=== PATIENT | female | born 1930 | race Caucasian/White ===

== ENCOUNTER 2020-02-06 18:57 | Emergency (ER) | payer MEDICARE ==
[~2020-02-06 18:57] MED LIST: AMLO-250 PO; ASPI-999 PO; DOXA2TAB2 PO; LISI40TA PO; METO100T12 PO; PSYL1PAC10 PO
[2020-02-06] MEDS ORDERED: NS IV 500 ML 500 ML IV STA (19:00)
--- NOTE | 2020-02-06 19:07 | ED General ---
General Stated Complaint: FALL Source of Information: Patient, EMS, EMS Notes Reviewed, RN/MD, RN Notes Reviewed History of Present Illness Date Seen by Provider: Feb 06, 2020 Time Seen by Provider: 18:55 Initial Comments This patient is an 89-year-old female presents to the emergency department after a fall in her home. Patient was found in the floor by neighbors for could not get in to help patient so EMS was called. Patient states she just stepped back and fell back has no injuries. Was unable to get herself up. Patient has no complaints at this time. We'll do medical evaluation treatment is needed. Timing/Duration: 1 Hour Severity: Mild Associated Systoms: Denies Symptoms Allergies and Home Medications Allergies Coded Allergies: Sulfa (Sulfonamide Antibiotics) (Unverified Allergy, Unknown, 08/31/15) Home Medications Amlodipine Besylate 5 Mg Tablet, 5 MG PO BID Prescribed by: ORTEGA BROOKS on 09/14/15 09 Aspirin 81 Mg Tab.chew, 81 MG PO DAILY, (Reported) Doxazosin Mesylate 2 Mg Tablet, 2 MG PO BID Prescribed by: ORTEGA BROOKS on 09/14/15 09 Lisinopril 40 Mg Tablet, 10 MG PO DAILY Prescribed by: LAURA CARSON on 09/04/151943 Metoprolol Tartrate 100 Mg Tablet, 100 MG PO BID, (Reported) Psyllium Husk (with Sugar) 3.4 Gm Powd.pack, 3.4 GM PO DAILY, (Reported) Patient Home Medication List Home Medication List Reviewed: Yes Review of Systems Review of Systems Constitutional: No no symptoms reported; see HPI; No chills, No diaphoresis, No dizziness, No fever, No malaise; weakness; No weight gain, No weight loss, No other EENTM: No see HPI, No no symptoms reported, No ear discharge, No hearing loss, No ear pain, No blurred vision, No double vision, No eye pain, No tearing, No vision loss, No dental problems, No hoarseness, No mouth pain, No mouth swelling, No epistaxis, No nose congestion, No nose pain, No throat pain, No throat swelling, No other Respiratory: No no symptoms reported, No see HPI, No cough, No dyspnea on exertion, No hemoptysis, No orthopnea, No phlegm, No short of breath, No stridor, No wheezing, No other Cardiovascular: No no symptoms reported, No see HPI, No chest pain, No edema, No Hx of Intervention, No palpitations, No syncope, No vascular heart diseas, No other Gastrointestinal: No RUQ, No LUQ, No RLQ, No LLQ, No no symptoms reported, No see HPI, No abdominal pain, No constipation, No diarrhea, No dysphagia, No hematemesis, No heartburn, No jaundice, No loss of appetite, No melena, No nausea, No vomiting, No other Genitourinary: No no symptoms reported, No see HPI, No decreased output, No discharge, No dysuria, No frequency, No hematuria, No hesitancy, No incontinence, No nocturia, No pain, No other Musculoskeletal: No no symptoms reported, No see HPI, No back pain, No gout, No joint pain, No joint swelling, No muscle pain, No muscle stiffness, No muscle cramps, No muscle twitching, No muscle weakness, No neck pain, No other Skin: No no symptoms reported, No see HPI, No change in color, No change in hair/nails, No dryness, No hx of skin cancer, No lesions, No lumps, No pruritus, No rash, No other Psychiatric/Neurological: Denies No Symptoms Reported, Denies See HPI, Denies Anxiety, Denies Depressed, Denies Emotional Problems, Denies Headache, Denies Numbness, Denies Paresthesia, Denies Pre-Existing Deficit, Denies Seizure, Denies Tingling, Denies Tremors, Denies Weakness, Denies Other All Other Systems Reviewed Negative Unless Noted: Yes Past [id number]-[id number]-Indlsp Hx Patient Social History Recent Foreign Travel: No Contact w/Someone Who Travel: No Immunizations Up To Date Tetanus Booster (TDap): Unknown Date of Influenza Vaccine: Jan 03, 2015 Past Medical History Hysterectomy Hypertension Reproductive Disorders: No UTI-Chronic Chronic Constipation, Diverticulosis Anxiety Adverse Reaction/Blood Tranf: No Family Medical History Cancer of mouth Completed stroke 19 FATHER, Onset:60 years & older Physical Exam Vital Signs Vital Signs - First Documented 02/06/20 19:00 Temp 36.5 Pulse 89 Resp 18 B/P (MAP) 200/79 (119) Pulse Ox 95 O2 Delivery Room Air Capillary Refill : Height, Weight, BMI Height: 5'7.00" Weight: 220lbs. 3.6oz. [id number]; 34.0 BMI Method:Stated General Appearance: No Apparent Distress, WD/WN Neck: Full Range of Motion, Normal Inspection, Non Tender, Supple Respiratory: Chest Non Tender, Lungs Clear, Normal Breath Sounds, No Accessory Muscle Use, No Respiratory Distress Cardiovascular: Regular Rate, Rhythm, No Edema, No Gallop, No JVD, No Murmur, Normal Peripheral Pulses Gastrointestinal: Normal Bowel Sounds, No Organomegaly, No Pulsatile Mass, Non Tender, Soft Back: Normal Inspection, No CVA Tenderness, No Vertebral Tenderness Extremity: Normal Capillary Refill, Normal Inspection, Normal Range of Motion, Non Tender, No Calf Tenderness, Swelling, Other (chronic lower leg edema and venous stasis.) Neurologic/Psychiatric: Alert, Oriented x3, No Motor/Sensory Deficits, Normal Mood/Affect Skin: Normal Color, Warm/Dry Progress/Results/Core Measures Suspected Sepsis SIRS Temperature: Pulse: Respiratory Rate: Laboratory Tests 02/06/20 19:03: White Blood Count 9.8 Blood Pressure / Mean: Laboratory Tests 02/06/20 19:03: Platelet Count 212 02/06/20 19:27: Creatinine 1.07, INR Comment 1.1, Total Bilirubin 0.5 Results/Orders Lab Results Laboratory Tests Test 02/06/20 19:03 02/06/20 19:27 02/06/20 20:05 Range/Units White Blood Count 9.8 4.3-11.0 10^3/uL Red Blood Count 4.22 L 4.35-5.85 10^6/uL Hemoglobin 12.6 11.5-16.0 G/DL Hematocrit 37 35-52 % Mean Corpuscular Volume 88 80-99 FL Mean Corpuscular Hemoglobin 30 25-34 PG Mean Corpuscular Hemoglobin Concent 34 32-36 G/DL Red Cell Distribution Width 13.3 10.0-14.5 % Platelet Count 212 130-400 10^3/uL Mean Platelet Volume 10.2 7.4-10.4 FL Immature Granulocyte % (Auto) 0 % Neutrophils (%) (Auto) 84 H 42-75 % Lymphocytes (%) (Auto) 8 L 12-44 % Monocytes (%) (Auto) 7 0-12 % Eosinophils (%) (Auto) 1 0-10 % Basophils (%) (Auto) 0 0-10 % Neutrophils # (Auto) 8.2 H 1.8-7.8 X 10^3 Lymphocytes # (Auto) 0.7 L 1.0-4.0 X 10^3 Monocytes # (Auto) 0.7 0.0-1.0 X 10^3 Eosinophils # (Auto) 0.1 0.0-0.3 10^3/uL Basophils # (Auto) 0.0 0.0-0.1 10^3/uL Immature Granulocyte # (Auto) 0.0 0.0-0.1 10^3/uL Neutrophils % (Manual) 82 % Lymphocytes % (Manual) 13 % Monocytes % (Manual) 4 % Eosinophils % (Manual) 0 % Basophils % (Manual) 0 % Band Neutrophils 1 % Prothrombin Time 14.7 12.2-14.7 SEC INR Comment 1.1 0.8-1.4 Sodium Level 134 L 135-145 MMOL/L Potassium Level 4.1 3.6-5.0 MMOL/L Chloride Level 103 98-107 MMOL/L Carbon Dioxide Level 19 L 21-32 MMOL/L Anion Gap 12 5-14 MMOL/L Blood Urea Nitrogen 21 H 7-18 MG/DL Creatinine 1.07 0.60-1.30 MG/DL Estimat Glomerular Filtration Rate 48 BUN/Creatinine Ratio 20 Glucose Level 110 H 70-105 MG/DL Calcium Level 10.1 8.5-10.1 MG/DL Corrected Calcium 10.2 H 8.5-10.1 MG/DL Total Bilirubin 0.5 0.1-1.0 MG/DL Aspartate Amino Transf (AST/SGOT) 16 5-34 U/L Alanine Aminotransferase (ALT/SGPT) 11 0-55 U/L Alkaline Phosphatase 80 40-136 U/L Troponin I < 0.30 <0.30 NG/ML Pro-B-Type Natriuretic Peptide 2728.0 H <75.0 PG/ML Total Protein 6.9 6.4-8.2 GM/DL Albumin 3.9 3.2-4.5 GM/DL Urine Color YELLOW Urine Clarity CLEAR Urine pH 6.0 5-9 Urine Specific [place] 1.010 L 1.016-1.022 Urine Protein NEGATIVE NEGATIVE Urine Glucose (UA) NEGATIVE NEGATIVE Urine Ketones NEGATIVE NEGATIVE Urine Nitrite NEGATIVE NEGATIVE Urine Bilirubin NEGATIVE NEGATIVE Urine Urobilinogen 0.2 < = 1.0 MG/DL Urine Leukocyte Esterase NEGATIVE NEGATIVE Urine RBC (Auto) TRACE H NEGATIVE Urine RBC NONE /HPF Urine WBC 0-2 /HPF Urine Squamous Epithelial Cells 2-5 /HPF Urine Crystals NONE /LPF Urine Bacteria NEGATIVE /HPF Urine Casts PRESENT /LPF Urine Hyaline Casts 0-2 H /LPF Urine Mucus NEGATIVE /LPF Urine Culture Indicated NO My Orders Orders - JOSE SPICER MD Cbc With Automated Diff (02/06/20:00) Comprehensive Metabolic Panel (02/06/20:) Chest 1 View Ap/Pa Only (02/06/20:) Ekg Tracing (02/06/20:) Ct Head Wo (02/06/20) Urinalysis (02/06/20) Troponin I Fs (02/06/20:) Probnp Fs (02/06/20:) Protime With Inr (02/06/20:) Ns Iv 500 Ml (Sodium Chloride 0.9%) (02/06/20:00) Manual Differential (02/06/20 19:03) Ed Iv/Invasive Line Start (02/06/20 19:18) Vital Signs/I&O 02/06/20:00 Temp 36.5 Pulse 89 Resp 18 B/P (MAP) 200/79 (119) Pulse Ox 95 O2 Delivery Room Air Capillary Refill : Progress Note : Time: 20:32 Progress Note Negative evaluation in the emergency Department no acute findings. Patient is alert and CHRONIC hypertension to multiple meds same. Patient has not taken her afternoon blood pressure medications include amlodipine and metoprolol. Patient's blood pressures around 200 systolic. Appears be chronic for this patient. Nursing staff will give patient her nighttime meds here prior to discharge. Patient was stable in her chronic conditions. Patient has no complaints at this time. Patient discharged home with family. ECG Initial ECG Impression Date: Feb 06, 2020 Initial ECG Impression Time: 19:01 Initial ECG Rate: 87 Initial ECG Rhythm: A Fib/Flutter Initial ECG Impression: Nonspecific Changes, Atrial Fibrillation Comment Atrial fibrillation with a heart rate of 87 nonspecific EKG changes. Departure Impression Primary Impression: Fall Additional Impressions: Hypertension Atrial fibrillation Disposition: HOME, SELF-CARE Condition: Stable Departure-Patient Inst. Decision time for Depature: 20:33 Referrals: NO,LOCAL PHYSICIAN (PCP) Primary Care Physician Patient Instructions: High Blood Pressure (DC), Atrial Fibrillation (DC) Add. Discharge Instructions: Maintain safety at home once for falls. Continue home medications. Understanding your nighttime blood pressure medications were given in the emergency department and do not take tonight at bedtime. Follow-up with PCP in 2-3 days. JOSE SPICER MD Feb 06, 2020 19:07
[2020-02-06 19:13] LABS: HEMOGLOBIN 12.6 G/DL (11.5-16.0); MEAN CORPUSCULAR HEMOGLOBIN 30 PG (25-34); WHITE BLOOD COUNT 9.8 10^3/uL (4.3-11.0)
[2020-02-06 19:14] LABS: BASOPHILS % (AUTO) 0 % (0-10); EOSINOPHILS # (AUTO) 0.1 10^3/uL (0.0-0.3); EOSINOPHILS % (AUTO) 1 % (0-10); HEMATOCRIT 37 % (35-52); LYMPHOCYTES # (AUTO) 0.7 X 10^3 (1.0-4.0); LYMPHOCYTES % (AUTO) 8 % (12-44); MEAN CORPUSCULAR HGB CONC 34 G/DL (32-36); MEAN CORPUSCULAR VOLUME 88 FL (80-99); MEAN PLATELET VOLUME 10.2 FL (7.4-10.4); MONOCYTES # (AUTO) 0.7 X 10^3 (0.0-1.0); MONOCYTES % (AUTO) 7 % (0-12); NEUTROPHILS # (AUTO) 8.2 X 10^3 (1.8-7.8); NEUTROPHILS % (AUTO) 84 % (42-75); PLATELET COUNT 212 10^3/uL (130-400)
[2020-02-06 19:38] LABS: BAND NEUTROPHILS 1 %; BASOPHILS % (MANUAL) 0 %; EOSINOPHILS % (MANUAL) 0 %; LYMPHOCYTES % (MANUAL) 13 %; MONOCYTES % (MANUAL) 4 %; NEUTROPHILS % (MANUAL) 82 %
[2020-02-06 19:49] LABS: INR 1.1 (0.8-1.4); PROTHROMBIN TIME PATIENT 14.7 SEC (12.2-14.7)
--- NOTE | 2020-02-06 19:51 | Diagnostic Imaging Report ---
PROCEDURE: CT head without contrast. TECHNIQUE: Multiple contiguous axial images were obtained through the brain without the use of intravenous contrast. Auto Exposure Controls were utilized during the CT exam to meet ALARA standards for radiation dose reduction. INDICATION: 89-year-old female, post fall CORRELATION STUDY: 08/31/2015 FINDINGS: Generalized atrophic changes with prominence of the ventricles and sulci. No definitive areas of abnormal decreased attenuation to suggest edema. There is no midline shift or mass effect. Basal ganglia calcifications are present. No intracranial hemorrhage. Bony calvarium intact. Paranasal sinuses and mastoid air cells clear. IMPRESSION: 1. Negative for acute traumatic intracranial abnormality. 2. Generalized age-related involutional changes. Dictated by: Dictated on workstation # [id number]
--- NOTE | 2020-02-06 19:53 | Diagnostic Imaging Report ---
INDICATION: Fall. TECHNIQUE: Single view chest 7:22 PM. CORRELATION STUDY: None FINDINGS: Heart size is enlarged. Vasculature slightly prominent. Suggestion of minimal atelectasis at the left lung base with perhaps trace pleural effusion. Asymmetric parenchymal density right lung apex which is partially obscured by overlying monitor lead. IMPRESSION: 1. Cardiac enlargement with borderline vasculature. 2. Question minimal atelectasis or infiltrate and effusion left lung base. 3. Vague density of the right lung apex. This is partially obscured by overlying monitor leads. The possibility of pulmonary nodule or infiltrate is not excluded and short-term follow-up repeat imaging recommended. Dictated by: Dictated on workstation # [id number]
[2020-02-06 20:04] LABS: ALANINE AMINOTRANSFERASE 11 U/L (0-55); ALKALINE PHOSPHATASE 80 U/L (40-136); BILIRUBIN,TOTAL 0.5 MG/DL (0.1-1.0); BUN/CREATININE RATIO 20; CALCIUM 10.1 MG/DL (8.5-10.1); CARBON DIOXIDE 19 MMOL/L (21-32); CHLORIDE 103 MMOL/L (98-107); CREATININE SERUM 1.07 MG/DL (0.60-1.30); GFR ESTIMATED 48; GLUCOSE 110 MG/DL (70-105); POTASSIUM 4.1 MMOL/L (3.6-5.0); SODIUM 134 MMOL/L (135-145)
[2020-02-06 20:05] LABS: ALBUMIN 3.9 GM/DL (3.2-4.5); TOTAL PROTEIN 6.9 GM/DL (6.4-8.2)
[2020-02-06 20:18] LABS: CLARITY,URINE CLEAR; COLOR,URINE YELLOW; PROTEIN,URINE NEGATIVE (NEGATIVE)
[2020-02-06 20:19] LABS: BACTERIA,URINE NEGATIVE /HPF; BILIRUBIN,URINE NEGATIVE (NEGATIVE); GLUCOSE, URINE (UA) NEGATIVE (NEGATIVE); HYALINE CASTS, URINE 0-2 /LPF; KETONES,URINE NEGATIVE (NEGATIVE); LEUKOCYTE ESTERASE ,URINE NEGATIVE (NEGATIVE); NITRITE,URINE NEGATIVE (NEGATIVE); WBC,URINE 0-2 /HPF
[2020-02-06 20:44] VITALS: BP 200/79
[2020-02-06] MEDS ORDERED: amLODIPine 5 MG (NORVASC) TAB PO ONE (20:45)
[2020-02-06] MEDS ORDERED: meTOprolol TARTRATE 25 MG (LOPRESSOR) TABLET PO ONE (20:45)
[2020-02-06] MEDS ORDERED: meTOproloL SUCCINATE 50 MG (TOPROL XL) TAB PO SCH (20:45)
== END 2020-02-06 20:47 | disposition home or self-care (01) ==
LOC: EDUNIT# 18:57 → ER FS 18:59
DX: Z04.3 Encounter for examination and observation following other accident (principal); I10 Essential (primary) hypertension; I48.91 Unspecified atrial fibrillation; I87.8 Other specified disorders of veins; R60.0 Localized edema; Z91.14 Patient's other noncompliance with medication regimen; Z79.899 Other long term (current) drug therapy; Z80.8 Family history of malignant neoplasm of other organs or systems; Z88.2 Allergy status to sulfonamides
CPT/HCPCS: 36415; 70450; 71045; 80053; 81000; 83880; 84484; 85007; 85027; 85610

== ENCOUNTER → 2020-02-17 | Outpatient (CLI) | payer MEDICARE | LOC: LAB FS 14:56 | PROVIDERS: ATTEND Family Medicine | DX: Z20.828 Contact with and (suspected) exposure to other viral communicable diseases (principal) | CPT/HCPCS: 87635 ==

== ENCOUNTER → 2020-02-20 | Outpatient (CLI) | payer MEDICARE ==
[2020-02-20 15:57] LABS: COLOR,URINE YELLOW
[2020-02-20 15:58] LABS: BACTERIA,URINE LARGE /HPF; BILIRUBIN,URINE NEGATIVE (NEGATIVE); GLUCOSE, URINE (UA) NEGATIVE (NEGATIVE); KETONES,URINE NEGATIVE (NEGATIVE); LEUKOCYTE ESTERASE ,URINE 2+ (NEGATIVE); NITRITE,URINE POSITIVE (NEGATIVE); PROTEIN,URINE TRACE (NEGATIVE); WBC,URINE >100 /HPF
[2020-02-20 15:59] LABS: CLARITY,URINE CLOUDY
== END ==
LOC: LAB FS 15:33
PROVIDERS: ATTEND Family Medicine
DX: I13.0 Hypertensive heart and chronic kidney disease with heart failure and stage 1 through stage 4 chronic kidney disease, or unspecified chronic kidney disease (principal); N18.30 Chronic kidney disease, stage 3 unspecified
CPT/HCPCS: 81000; 87088